=== PATIENT | female | born 1970 ===

== ENCOUNTER 2018-02-11 08:28 | Emergency (ER) | payer OTHER ==
[2018-02-11] MEDS ORDERED: SODIUM CHLORIDE 0.9% FLUSH 10 ML SOL IV PRN (08:31)
[2018-02-11] MEDS ORDERED: NITROGLYCERIN 0.4 MG TAB SL PRN (08:31)
[2018-02-11] MEDS ORDERED: ASPIRIN 81 MG CHEWABLE CTB PO STA (08:31)
[2018-02-11] MEDS ORDERED: MORPHINE SULFATE 10 MG/ML SOL IV PRN (08:31)
[2018-02-11] MEDS ORDERED: NITROGLYCERIN 0.4 MG TAB SL ONE (08:37)
[2018-02-11] MEDS ORDERED: ASPIRIN 81 MG CHEWABLE CTB ONE (08:37)
[2018-02-11 08:51] VITALS: RESP 20; TEMP 97.6
[2018-02-11 08:56] LABS: INR 0.91 (0.86-1.12)
[2018-02-11 08:58] LABS: BASOPHILS % (AUTO) 1 % (0-3); EOSINOPHILS % (AUTO) 2 % (0-9); HEMATOCRIT 41 % (35-47); HEMOGLOBIN 13.4 gm/dl (12.0-15.5); MEAN CORPUSCULAR HEMOGLOBIN 27.7 pg (27.0-32.0); MEAN CORPUSCULAR HGB CONC 32.9 gm/dl (32.0-36.0); MEAN CORPUSCULAR VOLUME 84 fL (81-99); MONOCYTES % (AUTO) 6.4 % (0-12); NEUTROPHILS % (AUTO) 68.4 % (37-80)
[2018-02-11 09:01] LABS: BLOOD UREA NITROGEN 13 mg/dl (7-18); CALCIUM 8.9 mg/dl (8.5-10.1); CARBON DIOXIDE 26.2 mEq/L (21-32); CHLORIDE 100 mMol/L (98-107); CREATINE KINASE 58 U/L (26-192); CREATININE 0.64 mg/dl (0.60-1.00); GLUCOSE 213 mg/dl (74-106); POTASSIUM 4.2 mMol/L (3.5-5.1); SODIUM 135 mMol/L (136-145); TROP I < 0.017 ng/ml (0.000-0.056)
[2018-02-11 13:28] VITALS: BP 138/87; PULSE 75; O2SAT 98
== END 2018-02-11 11:15 | disposition home or self-care (01) ==
LOC: ED 08:28
DX: R07.89 Other chest pain (principal)
CPT/HCPCS: 71045; 80048; 82550; 84484; 85025; 85610; 85730; 93005; 99284; A9270-GY